=== PATIENT | female | born 1970 | race American Indian/Alaskan Native ===

== ENCOUNTER 2019-03-04 15:20 | Emergency (ER) | payer OTHER ==
[~2019-03-04] VITALS: Ht 154.9 cm; Wt 59.9 kg
[~2019-03-04 15:20] MED LIST: ISONIAZID300 MG PO; NORCO 5-325 TA1 EACH PO; PENICILLIN V P500 MG PO; PYRIDOXINE HCL50 MG PO; SULFACETAMIDE S15 ML OU
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
[2019-03-04] MEDS ORDERED: K-TAB ER20 MEQ PO (17:37)
== END 2019-03-04 17:48 | disposition home or self-care (01) ==
LOC: ED 15:20
DX: F10.129 Alcohol abuse with intoxication, unspecified (principal); N39.0 Urinary tract infection, site not specified; E87.6 Hypokalemia; Z79.899 Other long term (current) drug therapy
CPT/HCPCS: 80053; 85025; 96365; 96366; 99284-25; G0480; J1956; J7120

== ENCOUNTER 2019-03-08 01:13 | Emergency (ER) | payer OTHER ==
[~2019-03-08] VITALS: Ht 154.9 cm; Wt 59.9 kg
[~2019-03-08 01:13] MED LIST changes: +K-TAB ER20 MEQ PO
--- OUTSIDE RECORDS SUMMARY | 2019-03-08 01:16 | XMS ---
PreManage Notification: LISA CHIANG Security Frame Carver Spindle Events No recent Security Events currently on file CRITERIA MET - [facility] - Has Care Guidelines - [facility] - 2 Visits in 30 Days CARE PROVIDERS MERY FREEMAN Physician Finished Garment Inspector: Medical 03/03/2019-Current PHONE: Unknown CINDY FOREMAN Nurse Practitioner 03/05/2019-Current PHONE: [phone] DOMO RIVAS Primary Care [facility] PHONE: Unknown DIONNE NORIEGA Primary Care [facility] ADOLFO PHONE: Unknown Pamela has no Care Guidelines for this patient. Care History Medical/Surgical 03/05/2019 [facility] \T\middot;\T\nbsp; PATIENT IS A [employer] MEMBER. \T\middot;\T\nbsp; PLEASE REFER PATIENT TO [facility] FOR NON EMERGENT MEDICAL NEEDS. \T\middot;\ T\nbsp; [facility] CAN SEE PATIENTS SAME DAY FOR APTS IF PATIENT CALLS FIRST THING IN THE MORNING. E.Dom. VISIT COUNT (12 MO.) 1 [facility] 3 [facility]. TOTAL 4 NOTE: Visits indicate total known visits. ED/UCC VISIT TRACKING (12 MO.) 03/08/2019 01:13 [facility] [place] TYPE: Emergency COMPLAINT: - ARM PAIN 03/04/2019 15:21 [facility] [place] TYPE: Emergency COMPLAINT: - LOC DIAGNOSES: - Hypokalemia - Alcohol abuse with intoxication, unspecified - Other snf (current) drug therapy - Urinary tract infection, site not specified 03/01/2019 22:44 [facility] [place] TYPE: Emergency COMPLAINT: - ABDOMINAL PAIN DIAGNOSES: - Right lower quadrant pain - Personal history of nicotine dependence - Unspecified abdominal pain - Other postherpetic nervous system involvement 02/22/2019 01:01 [facility] [place] TYPE: Emergency DIAGNOSES: - ANKLE INJ - Sprain of unspecified ligament of right ankle, initial encounter INPATIENT VISIT TRACKING (12 MO.) No inpatient visits to display in this time frame [email or web address]
== END 2019-03-08 05:19 | disposition home or self-care (01) ==
LOC: ED 01:13
DX: S46.911A Strain of unspecified muscle, fascia and tendon at shoulder and upper arm level, right arm, initial encounter (principal); F17.200 Nicotine dependence, unspecified, uncomplicated; X50.1XXA Overexertion from prolonged static or awkward postures, initial encounter
CPT/HCPCS: 73090; 99283-25

== ENCOUNTER → 2019-03-11 | Emergency (ER) | payer OTHER ==
[~2019-03-11] VITALS: Ht 154.9 cm; Wt 59.9 kg
[~2019-03-11] MED LIST changes: +KEFLEX500 MG PO
--- OUTSIDE RECORDS SUMMARY | ~2019-03-11 | XMS | Clinical Summary ---
Demographics + + + | Address | [address] | | | [place] [address] | + + + | Home Phone | | + + + | Preferred Language | Unknown | + + + | Marital Status | Unknown | + + + | Hoahaoism Affiliation | Unknown | + + + | Race | Unknown | + + + | Ethnic Group | Unknown | + + + Author + + + | Author | [facility] | | | and [facility] | + + + | Organization | [facility] | | | and [place] | + + + | Address | Unknown | + + + | Phone | Unavailable | + + + Care Team Providers + +------+ + | Care Optometric Aide Name | Role | Phone | + +------+ + PCP | Unavailable | + +------+ + Allergies Not on File Medications Not on file Active Problems Not on file Social History + +-------+ +--------+------+ | Tobacco [...] recent travel history available. | + + Last Filed Vital Signs Not on file Plan of Treatment + + + + + | Health Maintenance | Due Date | Last Done | Comments | + + + + + | Vaccine: | | | | | Dtap/Tdap/Td (1 - | 7 | | | | Tdap) | | | | + + + + + | Cervical Cancer | | | | | Screening (Pap) | 8 | | | + + + + + | Vaccine: Zoster (1 | | | | | of 2) | 8 | | | + + + + + | Vaccine: Influenza | | | | | (#1) | 9 | | | + + + + + Results Not on filefrom Last 3 Months"
--- OUTSIDE RECORDS SUMMARY | ~2019-03-11 | XMS | Clinical Summary ---
Demographics + + + | Address | [address] | | | [place] [address] | + + + | Home Phone | | + + + | Preferred Language | Unknown | + + + | Marital Status | Unknown | + + + | Zoroastrianism Affiliation | Unknown | + + + | Race | Unknown | + + + | Ethnic Group | Unknown | + + + Author + + + | Author | [facility] | | | and [facility] | + + + | Organization | [facility] | | | and [place] | + + + | Address | Unknown | + + + | Phone | Unavailable | + + + Care Team Providers + +------+ + | Care System Support Specialist Name | Role | Phone | + [...]
--- OUTSIDE RECORDS SUMMARY | 2019-03-11 22:28 | XMS ---
PreManage Notification: LISA CHIANG Security Bottom Liner Events No recent Security Events currently on file CRITERIA MET - - Has Care Guidelines - - 2 Visits in 30 Days CARE PROVIDERS MERY FREEMAN Physician Rose Grader: Medical 03/03/2019-Current PHONE: Unknown CINDY FOREMAN Nurse Practitioner 03/05/2019-Current PHONE: [phone] DOMO PHAN Primary [facility] PHONE: Unknown DIONNE NORIEGA Primary Care [facility] ADOLFO PHONE: Unknown Pamela has no Care Guidelines for this patient. Care History Medical/Surgical 03/05/2019 [facility] \T\middot;\T\nbsp; PATIENT IS A [employer] MEMBER. \T\middot;\T\nbsp; PLEASE REFER PATIENT TO [facility] FOR NON EMERGENT MEDICAL NEEDS. \T\middot;\ T\nbsp; [facility] CAN SEE PATIENTS SAME DAY FOR APTS IF PATIENT CALLS FIRST THING IN THE MORNING. E.Dom. VISIT COUNT (12 MO.) [address] TOTAL 5 NOTE: Visits indicate total known visits. ED/UCC VISIT TRACKING (12 MO.) 03/11/2019 22:25 [facility] [place] TYPE: Emergency COMPLAINT: - ABD PAIN 03/08/2019 01:13 [facility] [place] TYPE: Emergency COMPLAINT: - ARM PAIN 03/04/2019 15:21 [facility] [place] TYPE: Emergency COMPLAINT: - LOC DIAGNOSES: - Hypokalemia - Alcohol abuse with intoxication, unspecified - Other manager terminal (current) drug therapy - Urinary tract infection, site not specified 03/01/2019 22:44 [facility] [place] TYPE: Emergency COMPLAINT: - ABDOMINAL PAIN DIAGNOSES: - Right lower quadrant pain - Personal history of nicotine dependence - Unspecified abdominal pain - Other postherpetic nervous system involvement 02/22/2019 01:01 [facility] [place] TYPE: Emergency DIAGNOSES: - ANKLE INJ - Sprain of unspecified ligament of right ankle, initial encounter INPATIENT VISIT TRACKING (12 MO.) No inpatient visits to display in this time frame [id number]
== END ==
LOC: ED 22:25
DX: F10.129 Alcohol abuse with intoxication, unspecified (principal); F17.200 Nicotine dependence, unspecified, uncomplicated
CPT/HCPCS: 80053; 81001; 83690; 83735; 85025; 87088; 96361; 96365; 96366; 99284-25; G0480; J0696; J7030

== ENCOUNTER 2019-03-14 15:03 | Emergency (ER) | payer OTHER ==
[~2019-03-14] VITALS: Ht 154.9 cm; Wt 59.9 kg
[~2019-03-14 15:03] MED LIST changes: -KEFLEX500 MG PO
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
[2019-03-14] MEDS ORDERED: KEFLEX500 MG PO (17:02)
== END 2019-03-14 17:33 | disposition home or self-care (01) ==
LOC: ED 15:03
DX: S81.812A Laceration without foreign body, left lower leg, initial encounter (principal); S51.812A Laceration without foreign body of left forearm, initial encounter; F17.200 Nicotine dependence, unspecified, uncomplicated; W45.8XXA Other foreign body or object entering through skin, initial encounter
CPT/HCPCS: 90471; 90715; 99283-25

== ENCOUNTER 2019-06-07 14:49 | Emergency (ER) | payer OTHER ==
[~2019-06-07] VITALS: Ht 154.9 cm; Wt 59.9 kg
--- OUTSIDE RECORDS SUMMARY | ~2019-06-07 | XMS | Encounter Summary ---
Demographics + + + | Address | [address] | | | [place] [address] | + + + | Home Phone | | + + + | Preferred Language | Unknown | + + + | Marital Status | Unknown | + + + | Orthodoxy Affiliation | Unknown | + + + | Race | Unknown | + + + | Ethnic Group | Unknown | + + + Author + + + | Author | [facility] | | | and [place] | + + + | Organization | [facility] | | | and [place] | + + + | Address | Unknown | + + + | Phone | Unavailable | + + + Care Team Providers + +------+ + | Care Preparation Supervisor Canning Name | Role | Phone | + +------+ + PCP | Unavailable | + +------+ + Encounter Details +--------+ + + + + | Date | Type | Department | Care Team | Description | +--------+ + + + + | 01/09/ | Hospital | [facility] | [facility] | | | 2013 | Encounter | HOSPITAL EMERGENCY | MD [address] | | | | | [address] | [address] [employer], | | | | | [place], [place] | [place] [address] | | | | | [address] | [phone] | | | | | [phone] | | | +--------+ + + + + Social History + +-------+ +--------+------+ | Tobacco Use | Types | Packs/Day | Years | Date | | | | | Used | | + +-------+ +--------+------+ | Never Assessed | | | | | + +-------+ +--------+------+ + + + | Sex Assigned at | Date Recorded | | | | + + + | Not on file | | + + + + + + + | Job Start Date | Occupation | Industry | + + + + | Not on file | Not on file | Not on file | + + + + + + + + | Travel History | Travel Start | Travel End | + + + + + + | No recent travel history available. | + + documented as of this encounter Plan of Treatment Not on filedocumented as of this encounter Visit Diagnoses Not on filedocumented in this encounter"
--- OUTSIDE RECORDS SUMMARY | ~2019-06-07 | XMS | Clinical Summary ---
Demographics + + + | Address | [address] | | | [place] [address] | + + + | Home Phone | | + + + | Preferred Language | Unknown | + + + | Marital Status | Unknown | + + + | Church Affiliation | Unknown | + + + | Race | Unknown | + + + | Ethnic Group | Unknown | + + + Author + + + | Author | [facility] | | | and [facility] | + + + | Organization | [facility] | | | and [place] | + + + | Address | Unknown | + + + | Phone | Unavailable | + + + Care Team Providers + +------+ + | Care Chief Creative Officer Name | Role | Phone | + [...]
--- OUTSIDE RECORDS SUMMARY | ~2019-06-07 | XMS | Encounter Summary ---
Demographics + + + | Address | [address] | | | [place] [address] | + + + | Home Phone | | + + + | Preferred Language | Unknown | + + + | Marital Status | Unknown | + + + | Yazidi Affiliation | Unknown | + + + | Race | Unknown | + + + | Ethnic Group | Unknown | + + + Author + + + | Author | [facility] | | | and [place] | + + + | Organization | [facility] | | | and [place] | + + + | Address | Unknown | + + + | Phone | Unavailable | + + + Care Team Providers + +------+ + | Care Criminal Intelligence Specialist Name | Role | Phone | + +------+ + PCP | Unavailable | + +------+ + Encounter Details +--------+ + + + + | Date | Type | Department | Care Team | Description | +--------+ + + + + | 01/09/ | Hospital | [facility] | [facility] | | | 2013 | Encounter | HOSPITAL EMERGENCY | MD [address]gun[address] | | | | | [address] | [address] [employer], | | | | | [place], [place] | [place] [address] | | | | | [address] | [phone] | | | | | [phone] | | | +--------+ + + + [...]
--- OUTSIDE RECORDS SUMMARY | ~2019-06-07 | XMS | Clinical Summary ---
Demographics + + + | Address | [address] | | | [place] [address] | + + + | Home Phone | | + + + | Preferred Language | Unknown | + + + | Marital Status | Unknown | + + + | Yazidism Affiliation | Unknown | + + + | Race | Unknown | + + + | Ethnic Group | Unknown | + + + Author + + + | Author | [facility] | | | and [facility] | + + + | Organization | [facility] | | | and [place] | + + + | Address | Unknown | + + + | Phone | Unavailable | + + + Care Team Providers + +------+ + | Care [id number] Armor Crewman Name | Role | Phone | + [...]
[~2019-06-07 14:49] MED LIST changes: +KEFLEX500 MG PO
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
[2019-06-07] MEDS ORDERED: KEFLEX500 MG PO (17:47)
== END 2019-06-07 18:01 | disposition home or self-care (01) ==
LOC: ED 14:49
DX: S02.69XA Fracture of mandible of other specified site, initial encounter for closed fracture (principal); W01.198A Fall on same level from slipping, tripping and stumbling with subsequent striking against other object, initial encounter
CPT/HCPCS: 70450; 70486; 72125; 99284-25

== ENCOUNTER 2019-11-01 17:38 | Emergency (ER) | payer OTHER ==
[~2019-11-01] VITALS: Ht 154.9 cm; Wt 65.8 kg
--- OUTSIDE RECORDS SUMMARY | ~2019-11-01 | XMS | Clinical Summary ---
Demographics + + + | Address | [address] | | | [place] [address] | + + + | Home Phone | | + + + | Preferred Language | Unknown | + + + | Marital Status | Unknown | + + + | Amish Affiliation | Unknown | + + + | Race | Unknown | + + + | Ethnic Group | Unknown | + + + Author + + + | Author | [facility] | | | and [facility] | + + + | Organization | [facility] | | | and [place] | + + + | Address | Unknown | + + + | Phone | Unavailable | + + + Care Team Providers + +------+ + | Care Family Nurse Name | Role | Phone | + [...] | | | Dtap/Tdap/Td (1 - | 9 | | | | Tdap) | | | | + + + + + | Cervical Cancer | | | | | Screening (Pap) | 8 | | | + + + + + | Breast Cancer | | | | | Screening | 3 | | | + + + + + | Vaccine: Zoster (1 | | | | | of 2) | 8 | | | + + + + + | Vaccine: Influenza | | | | | (Season Ended) | 0 | | | + + + + + Results Not on filefrom Last 3 Months"
--- OUTSIDE RECORDS SUMMARY | ~2019-11-01 | XMS | Encounter Summary ---
Demographics + + + | Address | [address] | | | [place] [address] | + + + | Home Phone | | + + + | Preferred Language | Unknown | + + + | Marital Status | Unknown | + + + | Denominational Affiliation | Unknown | + + + | Race | Unknown | + + + | Ethnic Group | Unknown | + + + Author + + + | Author | [facility] | | | and [place] | + + + | Organization | [facility] | | | and [place] | + + + | Address | Unknown | + + + | Phone | Unavailable | + + + Care Team Providers + +------+ + | Care Clinical Application Manager Name | Role | Phone | + +------+ + PCP | Unavailable | + +------+ + Encounter Details +--------+ + + + + | Date | Type | Department | Care Team | Description | +--------+ + + + + | 01/09/ | Hospital | [facility] | [facility] | | | 2013 | Encounter | HOSPITAL EMERGENCY | MD [address] | | | | | [address] | [address] [employer], | | | | | [place] [employer], [place] | [place] [address] | | | | | [address] | [phone] | | | | | [phone] | | | +--------+ + + + [...]
--- OUTSIDE RECORDS SUMMARY | ~2019-11-01 | XMS | Clinical Summary ---
Demographics + + + | Address | [address] | | | [place] [address] | + + + | Home Phone | | + + + | Preferred Language | Unknown | + + + | Marital Status | Unknown | + + + | Yazdanism Affiliation | Unknown | + + + | Race | Unknown | + + + | Ethnic Group | Unknown | + + + Author + + + | Author | [facility] | | | and [facility] | + + + | Organization | [facility] | | | and [place] | + + + | Address | Unknown | + + + | Phone | Unavailable | + + + Care Team Providers + +------+ + | Care Embossing Machine Tender Name | Role | Phone | + [...]
--- OUTSIDE RECORDS SUMMARY | ~2019-11-01 | XMS | Encounter Summary ---
Demographics + + + | Address | [address] | | | [place] [address] | + + + | Home Phone | | + + + | Preferred Language | Unknown | + + + | Marital Status | Unknown | + + + | Latter-Day Affiliation | Unknown | + + + | Race | Unknown | + + + | Ethnic Group | Unknown | + + + Author + + + | Author | [facility] | | | and [place] | + + + | Organization | [facility] | | | and [place] | + + + | Address | Unknown | + + + | Phone | Unavailable | + + + Care Team Providers + +------+ + | Care Bessemer Bottom Maker Name | Role | Phone | + +------+ + PCP | Unavailable | + +------+ + Encounter Details +--------+ + + + + | Date | Type | Department | Care Team | Description | +--------+ + + + + | 01/09/ | Hospital | [facility] | Citlaly Elizalde | | | 2013 | Encounter | HOSPITAL EMERGENCY | [address] | | | | | [address] | [address] [employer], | | | | | [place], [place] | [place] [address] | | | | | [address] | [phone] | | | | | [phone] | | | +--------+ + + + [...]
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
== END 2019-11-01 18:31 | disposition left against medical advice (07) ==
LOC: ED 17:38
DX: R10.31 Right lower quadrant pain (principal); F10.129 Alcohol abuse with intoxication, unspecified; F17.200 Nicotine dependence, unspecified, uncomplicated
CPT/HCPCS: 80053; 81001; 83690; 83735; 84703; 85025; 99284; G0480

== ENCOUNTER 2020-01-26 13:45 | Emergency (ER) | payer OTHER ==
[~2020-01-26] VITALS: Ht 154.9 cm; Wt 65.8 kg
--- OUTSIDE RECORDS SUMMARY | ~2020-01-26 | XMS | Encounter Summary ---
Demographics + + + | Address | [address] | | | [place] [address] | + + + | Home Phone | | + + + | Preferred Language | Unknown | + + + | Marital Status | Unknown | + + + | Latter Day Affiliation | Unknown | + + + | Race | Unknown | + + + | Ethnic Group | Unknown | + + + Author + + + | Author | [facility] | | | and [place] | + + + | Organization | [facility] | | | and [place] | + + + | Address | Unknown | + + + | Phone | Unavailable | + + + Care Team Providers + +------+ + | Care Rn Procedure Name | Role | Phone | + +------+ + PCP | Unavailable | + +------+ + Encounter Details +--------+ + + + + | Date | Type | Department | Care Team | Description | +--------+ + + + + | 01/09/ | Hospital | [facility] | Citlaly Elizalde | | | 2013 | Encounter | HOSPITAL EMERGENCY | [address] | | | | | [address] | [address] [employer], | | | | | [place], [place] | [place] [address] | | | | | [address] | [phone] | | | | | [phone] | | | +--------+ + + + [...] on file | | + + + documented as of this encounter ED Notes Citlaly Elizalde MD - 01/10/2014 6:34 PM PDTER PROVIDER: Citlaly Elizalde MD CHIEF COMPLAINT: The patient is a 43 -year-old female who presents with complaints of left ankle pain. HISTORY OF PRESENT ILLNESS: She states that she is here form the [employer] and they were un loading their trailer and she put down a cooler and did not notice a hole in the ground and she stepped into the hole and ended-up twisting her ankle and falling. REVIEW OF SYSTEMS: She denies any other injuries. She denies any chest pain. No shortness of breath. No nausea. No abdominal pain. She states her only pain is in her left ankle. She thinks that she rolled it out laterally, because her pain is along the lateral side of her ankle. She states that it swelled and bru ised right-away, so she came for evaluation. PAST MEDICAL HISTORY: She states she is healthy. PAST SURGICAL HISTORY: She has not had any surgeries in the past, other than a skin graft o n her right knee for a blister that became infected. CURRENT MEDICATIONS: She does not take any medications. ALLERGIES: NO KNOWN DRUG ALLERGIES. PHYSICAL EXAMINATION: GENERAL/VITALS: Vital signs are within normal limits. General: She is a well-appearing fema le. She is in no acute distress. CHEST:Heart: Regular rate and rhythm. Lungs: Clear to auscultation bilaterally. ABDOMEN: Abdomen is soft and nontender to palpation. EXTREMITIES:Warm and dry. Capillary refill is less than 2 seconds. She does have ecchymosis and tenderness to palpation along the lateral left ankle, along the talofibular ligament. T here is no significant ligamental laxity. She has mild tenderness to palpation along the dis mariangel malleolus and the proximal 5th metatarsal. There is no ligamental laxity on examination and she is able to flex and extend her toes. She does have limited ankle plantarflexion and dorsiflexion secondary to pain. IMAGING: X-ray of the left ankle does not show any acute fractures or dislocations. ASSESSMENT AND PLAN: The patient is a 43 -year-old female who presented with left ankle karlo n with no signs of fracture or dislocation on X-ray. She does have a sprain and is placed in an Delmer-wrap as she did not want to have any other splint placed, or ankle brace and, theref ore, she will use an Delmer-wrap as-needed for pain, ice for 20-minutes at a time every couple of hours. She will keep it elevated as much as possible, as well, and will use Tylenol and I buprofen as-needed for pain. She will be on crutches and weightbearing as tolerated. She mattie l follow up if symptoms are not improving or are worsening over the next 24-48 hours. Otherw ise, she will follow up with her regular physician when she is back in [place]. She was di scharged home in good condition. dictation date: 01/09/2014 6: 34 PM PDTdocumented in this encounter Plan of Treatment Not on filedocumented as of this encounter Visit Diagnoses Not on filedocumented in this encounter"
--- OUTSIDE RECORDS SUMMARY | ~2020-01-26 | XMS | Clinical Summary ---
Demographics + + + | Address | [address] | | | [place] [address] | + + + | Home Phone | | + + + | Preferred Language | Unknown | + + + | Marital Status | Unknown | + + + | Christian Affiliation | Unknown | + + + | Race | Unknown | + + + | Ethnic Group | Unknown | + + + Author + + + | Author | [facility] | | | [facility] | + + + | Organization | [facility] | | | and [place] | + + + | Address | Unknown | + + + | Phone | Unavailable | + + + Care Team Providers + +------+ + | Care Presetter Operator Name | Role | Phone | + [...] on file | | + + + Last Filed Vital Signs Not on file Plan of Treatment + + +-------+ + | Health Maintenance | Due Date | Last | Comments | | | | Done | | + + +-------+ + | Vaccine: | | | | | Dtap/Tdap/Td (1 - | 7 | | | | Tdap) | | | | + + +-------+ + | Cervical Cancer | | | | | Screening (Pap) | 8 | | | + + +-------+ + | Breast Cancer | | | | | Screening | 3 | | | + + +-------+ + | Vaccine: Zoster (1 | | | | | of 2) | 8 | | | + + +-------+ + | Vaccine: Influenza | | | | | (#1) | 0 | | | + + +-------+ + Results Not on filefrom Last 3 Months"
[2020-01-26] MEDS ORDERED: TYLENOL325 MG PO (13:56)
== END 2020-01-26 14:08 | disposition left against medical advice (07) ==
LOC: ED 13:45
DX: Z53.21 Procedure and treatment not carried out due to patient leaving prior to being seen by health care provider (principal)